=== PATIENT | male | born 1965 ===

== ENCOUNTER → 2023-09-11 18:35 | Outpatient (ROUT) | payer OTHER, SELFPAY ==
[2023-09-11 18:52] LABS: Hematocrit 24.7 % (41-53); Hemoglobin 7.5 g/dL (13.5-17.5); Mean Corpuscular HGB Conc 30.2 % (30-36); Mean Corpuscular Hemoglobin 25.6 PG (26-34); Mean Corpuscular Volume 84.8 fL (80-100); Platelet Count 116 X10^3/uL (150-400); Red Blood Cell Count 2.92 X10^6/uL (4.5-5.9); Red Cell Distribution Width 23.4 % (11.6-14.8)
[2023-09-11 18:53] LABS: Add Manual Diff / Slide Review YES
[2023-09-11 18:54] LABS: Alanine Aminotransferase 6 IU/L (<50); Albumin 3.3 g/dL (3.5-5.0); Albumin Globulin Ratio 1.4 (1.0-2.8); Alkaline Phosphatase 58 U/L (38-126); Aspartate Aminotransferase 17 IU/L (17-59); BUN Creatinine Ratio 19.6 (6-22); Bilirubin Total 1.3 mg/dL (0.2-1.3); Blood Urea Nitrogen 11 mg/dL (9-20); C-Reactive Protein Quant 0.8 mg/dL (<1.0); Calcium 8.5 mg/dL (8.4-10.2); Carbon Dioxide 21 mmol/L (22-32); Chloride 113 mmol/L (98-107); Estimated Glomerular Filt Rate > 60 mL/min (>60); Globulin 2.4 g/dL (1.7-4.1); Glucose 97 mg/dL (70-100); HEMOLYSIS < 15 (0-50); Magnesium 2.3 mg/dL (1.6-2.3); Phosphorous 3.5 mg/dL (2.5-4.5); Sodium 139 mmol/L (137-145); Total Protein 5.7 g/dL (6.3-8.2); Triglycerides 102 mg/dL (35-150)
[2023-09-11 18:59] LABS: Prealbumin 11.7 mg/dL (17.6-36.0)
[2023-09-11 19:03] LABS: Neutrophils Absolute Manual 1120 /uL (3000-5900); Total Cells Counted 100
[2023-09-11 19:04] LABS: Anisocytosis 2+
== END ==
PROVIDERS: Visit Provider Internal Medicine Hematology & Oncology
DX: C18.7 Malignant neoplasm of sigmoid colon (principal); K46.0 Unspecified abdominal hernia with obstruction, without gangrene; E11.9 Type 2 diabetes mellitus without complications
CPT/HCPCS: 80053; 83735; 84100; 84134; 84478; 85007; 85025; 86140

== ENCOUNTER → 2023-09-18 18:52 | Outpatient (ROUT) | payer OTHER, SELFPAY ==
[2023-09-18 19:02] LABS: Add Manual Diff / Slide Review NO; Basophils Absolute Auto 0 /uL (0-100); Basophils Percent Auto 0.7 % (0-2); Eosinophils Absolute Auto 100 /uL (0-450); Hematocrit 25.4 % (41-53); Hemoglobin 7.6 g/dL (13.5-17.5); Lymphocytes Absolute Auto 900 /uL (1100-4500); Mean Corpuscular HGB Conc 29.9 % (30-36); Mean Corpuscular Hemoglobin 25.2 PG (26-34); Mean Corpuscular Volume 84.3 fL (80-100); Monocytes Absolute Auto 600 /uL (0-900); Monocytes Percent Auto 11.4 % (3-14); Neutrophils Absolute Auto 3900 /uL (1500-7000); Neutrophils Percent Auto 70.9 % (50-75); Platelet Count 112 X10^3/uL (150-400); Red Blood Cell Count 3.01 X10^6/uL (4.5-5.9); Red Cell Distribution Width 22.5 % (11.6-14.8); White Blood Cell Count 5.5 X10^3/uL (4.5-11.0)
[2023-09-18 19:05] LABS: Alanine Aminotransferase 7 IU/L (<50); Albumin 3.7 g/dL (3.5-5.0); Albumin Globulin Ratio 1.5 (1.0-2.8); Alkaline Phosphatase 59 U/L (38-126); Aspartate Aminotransferase 21 IU/L (17-59); BUN Creatinine Ratio 33.3 (6-22); Bilirubin Total 1.4 mg/dL (0.2-1.3); Blood Urea Nitrogen 20 mg/dL (9-20); Calcium 8.9 mg/dL (8.4-10.2); Carbon Dioxide 20 mmol/L (22-32); Chloride 111 mmol/L (98-107); Estimated Glomerular Filt Rate > 60 mL/min (>60); Globulin 2.4 g/dL (1.7-4.1); Glucose 101 mg/dL (70-100); HEMOLYSIS < 15 (0-50); Phosphorous 3.9 mg/dL (2.5-4.5); Potassium 4.6 mmol/L (3.4-5.1); Sodium 139 mmol/L (137-145); Total Protein 6.1 g/dL (6.3-8.2)
[2023-09-18 19:28] LABS: Anisocytosis 3+
== END ==
PROVIDERS: Visit Provider Internal Medicine Hematology & Oncology
DX: C18.7 Malignant neoplasm of sigmoid colon (principal); K46.0 Unspecified abdominal hernia with obstruction, without gangrene; E11.9 Type 2 diabetes mellitus without complications
CPT/HCPCS: 80053; 83735; 84100; 85025

== ENCOUNTER → 2023-09-25 18:35 | Outpatient (ROUT) | payer OTHER, SELFPAY ==
[2023-09-25 18:49] LABS: Add Manual Diff / Slide Review NO; Basophils Absolute Auto 0 /uL (0-100); Basophils Percent Auto 0.4 % (0-2); Eosinophils Absolute Auto 0 /uL (0-450); Eosinophils Percent Auto 0.6 % (2-4); Hematocrit 26.1 % (41-53); Hemoglobin 7.9 g/dL (13.5-17.5); Lymphocytes Absolute Auto 1100 /uL (1100-4500); Lymphocytes Percent Auto 15.8 % (25-40); Mean Corpuscular HGB Conc 30.4 % (30-36); Mean Corpuscular Hemoglobin 26.5 PG (26-34); Mean Corpuscular Volume 87.3 fL (80-100); Monocytes Absolute Auto 600 /uL (0-900); Monocytes Percent Auto 8.5 % (3-14); Neutrophils Absolute Auto 5000 /uL (1500-7000); Neutrophils Percent Auto 74.7 % (50-75); Platelet Count 115 X10^3/uL (150-400); Red Blood Cell Count 2.99 X10^6/uL (4.5-5.9); Red Cell Distribution Width 23.9 % (11.6-14.8); White Blood Cell Count 6.7 X10^3/uL (4.5-11.0)
[2023-09-25 18:54] LABS: Alanine Aminotransferase 10 IU/L (<50); Albumin 3.3 g/dL (3.5-5.0); Albumin Globulin Ratio 1.3 (1.0-2.8); Alkaline Phosphatase 63 U/L (38-126); Aspartate Aminotransferase 22 IU/L (17-59); BUN Creatinine Ratio 35.8 (6-22); Bilirubin Total 1.5 mg/dL (0.2-1.3); Blood Urea Nitrogen 19 mg/dL (9-20); Calcium 8.4 mg/dL (8.4-10.2); Carbon Dioxide 21 mmol/L (22-32); Chloride 109 mmol/L (98-107); Estimated Glomerular Filt Rate > 60 mL/min (>60); Globulin 2.5 g/dL (1.7-4.1); Glucose 130 mg/dL (70-100); HEMOLYSIS < 15 (0-50); Magnesium 2.1 mg/dL (1.6-2.3); Phosphorous 2.7 mg/dL (2.5-4.5); Potassium 3.7 mmol/L (3.4-5.1); Sodium 140 mmol/L (137-145); Total Protein 5.8 g/dL (6.3-8.2)
[2023-09-25 19:49] LABS: Anisocytosis 3+; Ovalocytes 2+; Tear Drop Cells 1+
[2023-09-25 19:50] LABS: Platelet Estimate Decreased on smear
== END ==
PROVIDERS: Visit Provider Chiropractor Rehabilitation
DX: C18.7 Malignant neoplasm of sigmoid colon (principal); K46.0 Unspecified abdominal hernia with obstruction, without gangrene; E11.9 Type 2 diabetes mellitus without complications
CPT/HCPCS: 80053; 83735; 84100; 85025